=== PATIENT | female | born 1995 | race Caucasian/White ===

== ENCOUNTER 2019-09-20 11:51 | Emergency (ER) | payer OTHER ==
[2019-09-20 12:03] VITALS: O2SAT 100
[2019-09-20] MEDS ORDERED: PENICILLIN BENZATHINE 1.2 MU 1.2 MU/2 ML SYG IM ONE (12:37)
--- NOTE | 2019-09-20 12:49 | ED.PDOC ---
History of Present Illness - General Chief Complaint: General Stated Complaint: Fever, Sore throat Time Seen by Provider: 09/20/19 11:55 Source: patient Exam Limitations: no limitations - History of Present Illness Initial Comments: The patient is a 24-year-old female presented emergency room after having had an elevated temperature at the long term when the patient was brought in. The patient's only complaint is a little bit of seasonal allergies and a mild sore throat for the last couple of days. She is actually afebrile here on her chest has not had any Motrin or Tylenol. Posterior oropharynx does show some sinus drainage as well as some mild erythema. No exudates. No abscess. She does have some mild left-sided anterior cervical lymphadenopathy. Lungs are clear. No shortness of breath. She is mildly tachycardic. No known coronavirus exposure though the number of cases in the community is significantly rising. Timing/Duration: 24 hours Severity: mild Improving Factors: nothing Worsening Factors: nothing Associated Symptoms: malaise Allergies/Adverse Reactions: Allergies NO KNOWN ALLERGY Allergy (Verified 09/20/19 12:03) Home Medications: Ambulatory Orders Cetirizine HCl [ZyrTEC] 10 mg PO BEDTIME 09/29/14 Review of Systems - Review of Systems Constitutional: States: malaise EENTM: States: nose congestion, throat pain Respiratory: States: no symptoms reported Cardiology: States: no symptoms reported Gastrointestinal/Abdominal: States: no symptoms reported Genitourinary: States: no symptoms reported Musculoskeletal: States: no symptoms reported Skin: States: no symptoms reported Neurological: States: no symptoms reported Endocrine: States: no symptoms reported All other Systems: No Change from Baseline Past Medical History (General) - Patient Medical History Hx Stroke: No Hx of COPD: No Hx Cardiac Disorders: No Hx Congestive Heart Failure: No Hx Hypertension: No Hx Diabetes: No Hx Cancer: No Hx MRSA: No Surgical History: other - Vaccination History Hx Tetanus, Diphtheria Vaccination: - 5 yrs ago Hx Influenza Vaccination: Yes - 2013 - Social History Hx Tobacco Use: No Hx Alcohol Use: Yes Hx Substance Use: No Hx Substance Use Treatment: No Hx Depression: No - Female History Patient is a Female of Child Bearing Age (10 -59 yrs old): Yes Patient : No Family Medical History - Family History Father Family History: No Known Living Status: Still Living Physical Exam - Physical Exam General Appearance: Alert, Comfortable, No apparent distress Eye Exam: bilateral normal Ears, Nose, Throat: hearing grossly normal, nasal congestion, pharyngeal erythema Neck: full range of motion - See history of present illness, supple Respiratory: lungs clear, normal breath sounds, no respiratory distress, no accessory muscle use Cardiovascular/Chest: normal peripheral pulses, regular rate, rhythm - Mild sinus tachycardia, no edema Peripheral Pulses: radial,right: 2+, radial,left: 2+ Gastrointestinal/Abdominal: non tender, soft Rectal Exam: deferred Back Exam: no CVA tenderness, no vertebral tenderness Extremity: normal range of motion, normal inspection, no pedal edema, normal capillary refill 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 Rapid strep is positive. Coronavirus test is a send out. Progress - Progress Progress: 09/20/19 12:50 The patient is a 24-year-old female brought in police custody secondary to reported fever at the long term. The patient is technically afebrile here. She does have streptococcal pharyngitis and has received a dose of Bicillin LA here. She has tested negative for influenza. She does have a coronavirus test that is a send out and will be a couple of days before it is returned. The streptococcal pharyngitis is enough to explain her symptoms and temperature elevation. A secondary superimposed infection of coronavirus is possible but unlikely. The patient is contagious from the point of strep throat. She should however require no further treatment for eradication of the strep throat. ER warnings are given for any obvious worsening's. noe lomax [id number] - EKG/XRAY/CT CT Ordered: No Departure - Departure Clinical Impression: Streptococcal sore throat Disposition: [facility] Condition: Fair Departure Forms: ED Discharge - Pt. Copy, Patient Portal Self Enrollment Instructions: Strep Throat (DC) Diet: regular diet Activity: increase activity as tolerated Home Medications: Ambulatory Orders Cetirizine HCl [ZyrTEC] 10 mg PO BEDTIME 09/29/14 Additional Instructions: The patient is a 24-year-old female brought in police custody secondary to reported fever at the long term. The patient is technically afebrile here. She does have streptococcal pharyngitis and has received a dose of Bicillin LA here. She has tested negative for influenza. She does have a coronavirus test that is a send out and will be a couple of days before it is returned. The streptococcal pharyngitis is enough to explain her symptoms and temperature elevation. A secondary superimposed infection of coronavirus is possible but unlikely. The patient is contagious from the point of strep throat. She should however require no further treatment for eradication of the strep throat. ER warnings are given for any obvious worsening's.
[2019-09-20 13:02] VITALS: BP 122/64; TEMP 98.6
== END 2019-09-20 13:02 ==
LOC: ER 11:51
DX: J02.0 Streptococcal pharyngitis (principal); R50.9 Fever, unspecified; Z03.818 Encounter for observation for suspected exposure to other biological agents ruled out
CPT/HCPCS: 87502; 87635; 87880; J0561